=== PATIENT | female | born 1960 | race Caucasian/White ===

== ENCOUNTER → 2017-01-14 | Outpatient (CLI) | payer OTHER ==
--- NOTE | 2017-01-14 14:37 | XR ---
Left foot HISTORY: Osteoarthritis left foot, [id number], pain and numbness between second and third digits Comparison previous exam 02/29/2016 3 views of the left foot Exam is stable. No bone erosion or periostitis. Alignment, bone mineralization, joint spaces are stab le. IMPRESSION: Osteoarthritic changes present at the first metatarsophalangeal joint. Consider foot MRI for increased sensitivity as indicated.
== END | disposition home or self-care (01) ==
LOC: RADXRYALE 13:17
PROVIDERS: ATTEND Internal Medicine
DX: M19.072 Primary osteoarthritis, left ankle and foot (principal)

== ENCOUNTER → 2018-11-26 | Outpatient (CLI) | payer BC ==
--- NOTE | 2018-11-29 13:33 | MM ---
Reason for exam: screening (asymptomatic). Last mammogram was performed 5 years and 7 months ago. History: Patient is postmenopausal. Physical Findings: A clinical breast exam by your physician is recommended on an annual basis and results should be correlated with mammographic findings. MG Screening Mammo w CAD Bilateral CC and MLO view(s) were taken. Prior study comparison: April 28, 2013, bilateral digital screening mammo w/CAD. December 07, 2007, bilateral digital screening mammogram. The breast tissue is heterogeneously dense. This may lower the sensitivity of mammography. There is chronic nodularity in the left breast. Fibroglandular densities and trabecular markings show increase from 2013 making comparison difficult. Posterior asymmetric density is new, likely fibroglandular tissue. ASSESSMENT: Probably benign, BI-RAD 3 RECOMMENDATION: Follow-up diagnostic mammogram of the right breast in 6 months.
== END | disposition home or self-care (01) ==
LOC: RADMAMWWP 16:28
PROVIDERS: ATTEND Internal Medicine
DX: Z12.31 Encounter for screening mammogram for malignant neoplasm of breast (principal)
CPT/HCPCS: 77067

== ENCOUNTER 2020-08-05 13:53 | Emergency (ER) | payer OTHER, BC ==
[2020-08-05 14:09] VITALS: RESP 18; TEMP 98.1
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
[2020-08-05 15:23] LABS: Basophils % (A) 1 %; Eosinophils # (A) 0.4 k/uL (0-0.7); Eosinophils % (A) 6 %; HGB 15.5 gm/dL (11.4-16.0); Lymphocytes # (A) 1.4 k/uL (1.0-4.8); Lymphocytes % (A) 22 %; MCH 31.1 pg (25.0-35.0); MCHC 33.7 g/dL (31.0-37.0); MCV 92.2 fL (80.0-100.0); Monocytes # (A) 0.4 k/uL (0-1.0); Monocytes % (A) 6 %; Neutrophils % (A) 64 %; Platelet Count 213 k/uL (150-450); RBC 4.99 m/uL (3.80-5.40); RDW 12.7 % (11.5-15.5); WBC 6.3 k/uL (3.8-10.6)
[2020-08-05 15:31] LABS: ALT 17 U/L (4-34); AST 26 U/L (14-36); African American GFR (CKD) >90 (>60 ml/min/1.73 sqM); Albumin 3.4 g/dL (3.5-5.0); Alkaline Phosphatase 46 U/L (38-126); Anion Gap 6 mmol/L; Blood Urea Nitrogen 9 mg/dL (7-17); Calcium 8.8 mg/dL (8.4-10.2); Carbon Dioxide 26 mmol/L (22-30); Chloride 106 mmol/L (98-107); Glucose 92 mg/dL (74-99); Non-African American GFR(CKD) >90 (>60 ml/min/1.73 sqM); Potassium 4.2 mmol/L (3.5-5.1); Sodium 138 mmol/L (137-145); Total Bilirubin 0.5 mg/dL (0.2-1.3); Total Protein 5.9 g/dL (6.3-8.2)
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
[2020-08-05 17:01] VITALS: BP 165/79; PULSE 60
== END 2020-08-05 17:01 | disposition home or self-care (01) ==
LOC: EC 13:53
DX: Z04.1 Encounter for examination and observation following transport accident (principal); R10.819 Abdominal tenderness, unspecified site; Z87.891 Personal history of nicotine dependence; Y92.410 Unspecified street and highway as the place of occurrence of the external cause
CPT/HCPCS: 36415; 80053; 85025; 71260; 74177; 99284; Q9967

== ENCOUNTER → 2022-04-25 | Outpatient (CLI) | payer BC ==
[2022-04-25 17:22] LABS: Partial Thromboplastin Time 22.2 sec (22.0-30.0)
== END | disposition home or self-care (01) ==
LOC: LABWHC1 16:22
PROVIDERS: ATTEND Psychiatry & Neurology Neurology
DX: G45.9 Transient cerebral ischemic attack, unspecified (principal); D68.59 Other primary thrombophilia; R73.9 Hyperglycemia, unspecified
CPT/HCPCS: 36415; 83036; 83090; 85610; 85652; 85730

== ENCOUNTER → 2022-05-16 | Outpatient (CLI) | payer BC ==
--- NOTE | 2022-05-17 04:58 | MR ---
EXAMINATION TYPE: MR angio head wo/neck wo/w con DATE OF EXAM: 05/16/2022 COMPARISON: None HISTORY: Transient cerebral ischemic attack. CONTRAST: Standard multiplanar, multisequence MRI departmental protocol images were obtained without contrast a nd with 7 mL intravenous Gadavist gadolinium contrast. MR angiographic images were obtained of the head and neck without and with the IV contrast gadolinium . There is arterial flow in the anterior middle and posterior cerebral arteries. There is arterial flow in the vertebral basilar artery system. No mass effect. No evidence of intracranial aneurysm or neov ascularity. No evidence of intracranial hemodynamic arterial stenosis. The posterior cerebral arterie s appear to fill entirely through the basilar artery. There is arterial flow in the common internal and external carotid arteries bilaterally. As arterial flow in both vertebral arteries. There is normal branching pattern of the great vessels on the aortic arch. No evidence of carotid or vertebral artery aneurysm or dissection. No evidence of hemodynamic arterial stenosis in the carotid and vertebral arteries. There is wide patency of the carotid artery bifurcations. IMPRESSION: Normal MR angiography of the neck. Normal MR angiography of the brain.
--- NOTE | 2022-05-19 07:58 | MR ---
EXAMINATION TYPE: MR brain wo con DATE OF EXAM: 05/16/2022 COMPARISON: Prior MRI brain March 01, 2015 HISTORY: Transient cerebral ischemic attack. TECHNIQUE: Multiplanar, multisequence imaging of the brain and brainstem is performed without IV cont rast. FINDINGS: Diffusion weighted images demonstrate no evidence of a recent infarct or other diffusion abnormality. There is no extraaxial fluid collection or significant white matter signal abnormality. The ventricu lar system and cisternal spaces remain normal in size and appearance. The brain volume is age approp riate. T2*weighted images show no suspicious intraparenchymal blood products. Midline structures redemonstrate normal morphology. The craniocervical junction remains within milton l limits. Normal vascular flow voids are redemonstrated. Stable 1.0 cm mucous retention cyst or polyp in the posterior right maxillary sinus axial image 6 otherwise paranasal sinuses are clear and globe s are intact bilaterally. IMPRESSION: Chronic maxillary sinus disease redemonstrated otherwise unremarkable study. No significa nt change from prior MRI.
== END | disposition home or self-care (01) ==
LOC: RADMRIMAIN 14:16
PROVIDERS: ATTEND Psychiatry & Neurology Neurology
DX: G45.9 Transient cerebral ischemic attack, unspecified (principal)
CPT/HCPCS: 70544; 70549; 70551; A9585